=== PATIENT | male | born 1955 | race African-American/Black ===

== ENCOUNTER 2017-05-27 23:12 | Inpatient (IN) | payer MEDICAID ==
[~2017-05-27] VITALS: Ht 175.3 cm; Wt 69.4 kg
[~2017-05-27 23:12] MED LIST: ASPI-1159 PO; BP MED PO; CHOL20004 PO; INSULIN; KDUR10 PO
[2017-05-27] MEDS ORDERED: SODIUM CHLORIDE 0.9% 1,000 ML IV ONE (23:46)
[2017-05-28 00:37] LABS: BASOPHILS % 0.5 % (0.0-2.0); EOSINOPHILS % 0.7 % (0.0-5.0); HEMATOCRIT. 40.4 % (42.0-52.0); HEMOGLOBIN. 12.9 g/dL (14.0-18.0); LYMPHOCYTES % 12.5 % (20.0-50.0); MEAN CORPUSCULAR HEMOGLOBIN 29.1 pg (28.0-32.0); MEAN CORPUSCULAR VOLUME 91.4 fL (80.0-94.0); MEAN PLATELET VOLUME 11.2 fl (7.4-10.4); MONOCYTES % 12.4 % (2.0-8.0); NEUTROPHILS % 73.9 % (40.0-76.0); PLATELET 165 x1000/uL (130-400); RED BLOOD CELL COUNT 4.42 mill/uL (4.7-6.1)
[2017-05-28 00:40] LABS: CHLORIDE 91 mEq/L (98-107)
[2017-05-28 00:53] LABS: AMYLASE 56 IU/L (25-115); BETA HYDROXYBUTYRATE 0.8 mMol/L (0.0-0.3); CARBON DIOXIDE 26 mEq/L (21-32)
[2017-05-28] MEDS ORDERED: SODIUM CHLORIDE 0.9% 1,000 ML IV ONE (01:48)
[2017-05-28] MEDS ORDERED: INSULIN REGULAR (HUMULIN R) 300UNITS/3ML SUBCUT ONE (02:00)
[2017-05-28] MEDS ORDERED: INSULIN REGULAR (HUMULIN R) 300UNITS/3ML IV ONE (02:00)
[2017-05-28 09:00] VITALS: BP 156/101
[2017-05-28 09:50] VITALS: BP 156/101
[2017-05-28] MEDS ORDERED: ACETAMINOPHEN 325MG TABLET PO PRN (10:45)
[2017-05-28] MEDS ORDERED: GUAIFENESIN 200MG/10ML SUGAR FREE UDC PO PRN (10:45)
[2017-05-28] MEDS ORDERED: DIPHENHYDRAMINE 50MG/ML VIAL IV PRN (10:45)
[2017-05-28] MEDS ORDERED: MAGNESIUM/ALUMINUM HYDROXIDE/SIMETHICONE 30ML UDC PO PRN (10:45)
[2017-05-28] MEDS ORDERED: DOCUSATE SODIUM 100MG CAPSULE PO PRN (10:45)
[2017-05-28] MEDS ORDERED: HYDROCODONE/ACETAMINOPHEN 5/325MG TABLET PO PRN (10:45)
[2017-05-28] MEDS ORDERED: IPRATROPIUM/ALBUTEROL 0.5-3(2.5)MG/3ML NEB INH PRN (10:45)
[2017-05-28] MEDS: CLONIDINE 0.1MG TABLET PO PRN (11:04)
[2017-05-28] MEDS ORDERED: DEXTROSE 50% WATER 50ML SYRINGE IV PRN (11:45)
[2017-05-28] MEDS: SODIUM CHLORIDE 0.9% 1,000 ML IV SCH ×2 (11:52→18:03)
[2017-05-28 12:00] VITALS: BP 148/99
[2017-05-28] MEDS: ENOXAPARIN 40MG/0.4ML SYR SUBCUT SCH (12:13)
[2017-05-28] MEDS: BLOOD SUGAR DIAGNOSTIC STRIP TEST SCH ×3 (12:41→22:08)
[2017-05-28] MEDS ORDERED: INSULIN LISPRO 100 UNITS/ML SUBCUT SCH ×2 (13:10→17:40)
[2017-05-28] MEDS: INSULIN LISPRO 100 UNITS/ML SUBCUT SCH ×2 (13:35→18:05)
[2017-05-28 16:00] VITALS: BP 159/89
[2017-05-28] MEDS: INSULIN LISPRO (LOW DOSE) 100 UNITS/ML SUBCUT SCH (18:05)
[2017-05-28 20:00] VITALS: BP 154/92
[2017-05-28] MEDS ORDERED: INSULIN DETEMIR UD 100 UNITS/ML SYR SUBCUT SCH (22:00)
[2017-05-28 23:54] VITALS: BP 159/86
[2017-05-29] MEDS: SODIUM CHLORIDE 0.9% 1,000 ML IV SCH ×3 (00:03→09:44)
[2017-05-29 04:00] VITALS: BP 169/96
[2017-05-29] MEDS: CLONIDINE 0.1MG TABLET PO PRN ×2 (04:55→12:58)
[2017-05-29 05:41] VITALS: BP 148/89
[2017-05-29 05:52] LABS: BASOPHILS % 0.8 % (0.0-2.0); HEMATOCRIT. 41.3 % (42.0-52.0); HEMOGLOBIN. 13.5 g/dL (14.0-18.0); LYMPHOCYTES % 20.9 % (20.0-50.0); MEAN CORPUSCULAR VOLUME 88.8 fL (80.0-94.0); MEAN PLATELET VOLUME 10.5 fl (7.4-10.4); MONOCYTES % 10.9 % (2.0-8.0); NEUTROPHILS % 64.4 % (40.0-76.0); PLATELET 192 x1000/uL (130-400); RED BLOOD CELL COUNT 4.65 mill/uL (4.7-6.1); RED CELL DISTRIBUTION WIDTH 12.9 % (11.6-14.6)
[2017-05-29] MEDS: BLOOD SUGAR DIAGNOSTIC STRIP TEST SCH ×3 (06:00→18:20)
[2017-05-29] MEDS: INSULIN LISPRO (LOW DOSE) 100 UNITS/ML SUBCUT SCH (06:22)
[2017-05-29] MEDS: INSULIN LISPRO 100 UNITS/ML SUBCUT SCH ×5 (06:23→18:20)
[2017-05-29 06:40] LABS: CARBON DIOXIDE 22 mEq/L (21-32); CHLORIDE 100 mEq/L (98-107)
[2017-05-29 06:46] LABS: T4 FREE 1.31 ng/dL (0.76-1.46)
[2017-05-29 08:00] VITALS: BP 144/96
[2017-05-29] MEDS: ENOXAPARIN 40MG/0.4ML SYR SUBCUT SCH (09:44)
[2017-05-29 12:00] VITALS: BP 175/97
[2017-05-29] MEDS ORDERED: BLOOD SUGAR DIAGNOSTIC STRIP TEST SCH ×2 (12:40→17:40)
[2017-05-29] MEDS ORDERED: DEXTROSE 50% WATER 50ML SYRINGE IV PRN ×2 (12:45)
[2017-05-29] MEDS ORDERED: INSULIN LISPRO 100 UNITS/ML SUBCUT SCH ×3 (13:10→17:40)
[2017-05-29 16:00] VITALS: BP 148/96
[2017-05-29 16:19] VITALS: BP 156/72
[2017-05-29] MEDS ORDERED: INSULIN DETEMIR UD 100 UNITS/ML SYR SUBCUT SCH ×2 (22:00)
[2017-06-03 13:08] LABS: METANEPHRINE PLASMA 26 pg/mL (0-62); NORMETANEPHRINE PLASMA 85 pg/mL (0-145)
== END 2017-05-29 19:59 | disposition home or self-care (01) | DRG 52 ==
LOC: ER 23:12 → 7WST 05-28 05:48 → EDBEDREQ 05-28 05:49 → EDBEDREQTM 05-28 05:49 → EDBEDREQSVC 05-28 05:49 → ENRESERV 05-28 05:57 → CANRESERV 05-28 05:57 → ENRESERV 05-28 07:20
PROVIDERS: ADMIT Internal Medicine; ATTEND Internal Medicine
DX: G92 Toxic encephalopathy (principal); E10.51 Type 1 diabetes mellitus with diabetic peripheral angiopathy without gangrene; E10.65 Type 1 diabetes mellitus with hyperglycemia; I10 Essential (primary) hypertension; D35.02 Benign neoplasm of left adrenal gland; E55.9 Vitamin D deficiency, unspecified; E78.00 Pure hypercholesterolemia, unspecified; E78.5 Hyperlipidemia, unspecified; E86.0 Dehydration; G40.909 Epilepsy, unspecified, not intractable, without status epilepticus; H40.9 Unspecified glaucoma; D64.9 Anemia, unspecified; I73.9 Peripheral vascular disease, unspecified; M51.36 Other intervertebral disc degeneration, lumbar region; Z79.4 Long term (current) use of insulin; Z79.899 Other long term (current) drug therapy; Z86.73 Personal history of transient ischemic attack (TIA), and cerebral infarction without residual deficits; Z87.891 Personal history of nicotine dependence; Z96.41 Presence of insulin pump (external) (internal); Z59.0 Homelessness; Z91.013 Allergy to seafood; Z80.9 Family history of malignant neoplasm, unspecified
CPT/HCPCS: 36415; 71010; 80048; 80053; 80061; 82010; 82040; 82150; 82533; 82962; 83036; 83690; 83835; 84439; 84443; 85025; 93005; 93923; 93970; 99285; J1650; J1815; J7030

== ENCOUNTER 2017-05-29 21:23 | Emergency (ER) | payer MEDICAID | END 2017-05-30 01:00 | disposition left against medical advice (07) | LOC: ER 23:07 | DX: R53.1 Weakness (principal); Z53.21 Procedure and treatment not carried out due to patient leaving prior to being seen by health care provider ==

== ENCOUNTER 2017-06-01 01:10 | Inpatient (IN) | payer MEDICAID, OTHER ==
[~2017-06-01] VITALS: Ht 165.1 cm; Wt 67.1 kg
[2017-06-01] MEDS ORDERED: SODIUM CHLORIDE 0.9% 1,000 ML IV ONE ×2 (03:48→15:07)
[2017-06-01 04:18] LABS: BASOPHILS % 1.2 % (0.0-2.0); EOSINOPHILS % 0.3 % (0.0-5.0); HEMOGLOBIN. 13.3 g/dL (14.0-18.0); LYMPHOCYTES % 9.6 % (20.0-50.0); MEAN CORPUSCULAR HEMOGLOBIN 29.5 pg (28.0-32.0); MEAN CORPUSCULAR VOLUME 86.5 fL (80.0-94.0); MEAN PLATELET VOLUME 9.8 fl (7.4-10.4); MONOCYTES % 12.4 % (2.0-8.0); NEUTROPHILS % 76.5 % (40.0-76.0); PLATELET 243 x1000/uL (130-400); RED BLOOD CELL COUNT 4.51 mill/uL (4.7-6.1)
[2017-06-01 04:33] LABS: CARBON DIOXIDE 28 mEq/L (21-32); CHLORIDE 102 mEq/L (98-107); TROPONIN I 0.05 ng/mL (0.00-0.04)
[2017-06-01] MEDS ORDERED: OLANZAPINE 10 MG/VIAL IM ONE (05:00)
[2017-06-01 08:06] LABS: *AMPHETAMINES SCREEN URINE NEGATIVE (NEGATIVE); *BARBITURATES SCREEN URINE NEGATIVE (NEGATIVE); *BENZODIAZEPINES SCREEN URINE NEGATIVE (NEGATIVE); *COCAINE SCREEN URINE NEGATIVE (NEGATIVE); CANNABINOID URINE SCREEN PRESUMTIVE POSITIVE (NEGATIVE); METHADONE URINE SCREEN NEGATIVE (NEGATIVE); OPIATES URINE SCREEN NEGATIVE (NEGATIVE); PHENCYCLIDINE URINE SCREEN NEGATIVE (NEGATIVE)
[2017-06-01] MEDS ORDERED: CLOP75TA33 PO (14:46)
[2017-06-01] MEDS ORDERED: LOSA100T14 PO (14:46)
[2017-06-01] MEDS ORDERED: [UNRECOGNIZED DRUG - OTHER] (14:46)
[2017-06-01] MEDS ORDERED: AMLO2.5T45 PO (14:46)
[2017-06-01] MEDS ORDERED: FLUO-124 PO (14:46)
[2017-06-01] MEDS ORDERED: NAPR-681 PO (14:46)
[2017-06-01 16:58] LABS: CLARITY URINE CLEAR (CLEAR); COLOR URINE YELLOW (YELLOW); GLUCOSE URINE 3+ (NEGATIVE); KETONES URINE 1+ (NEGATIVE); LEUKOCYTE ESTERASE URINE NEGATIVE (NEGATIVE); NITRITE URINE NEGATIVE (NEGATIVE); OCCULT BLOOD URINE TRACE (NEGATIVE); PH URINE 5.5 (4.5-8.0); PROTEIN URINE 1+ (NEGATIVE); SPECIFIC GRAVITY URINE 1.022 (1.005-1.030); UROBILINOGEN URINE 0.2 E.U./dL (0.2-1.0)
[2017-06-02] MEDS ORDERED: CLOPIDOGREL 75MG TABLET PO SCH (10:15)
[2017-06-02] MEDS ORDERED: AMLODIPINE 5MG TABLET PO SCH (10:15)
[2017-06-02] MEDS ORDERED: LOSARTAN POTASSIUM 25 MG TABLET PO SCH (10:15)
[2017-06-02] MEDS: ASPIRIN 81MG TABLET PO SCH ×2 (10:37→12:55)
[2017-06-02] MEDS ORDERED: SODIUM CHLORIDE 0.9% 1,000 ML IV ONE ×2 (22:29→23:14)
[2017-06-02 23:10] LABS: BG BASE EXCESS -20.8 mmol/L (-2.0-2.0); BG CARBOXYHEMOGLOBIN 0.4 % (0.5-1.5); BG DEOXYHEMOGLOBIN 2.1 % (0.0-5.0); BG FRACTION INSPIRED OXYGEN 21; BG HCO3 ACT 5.3 mmol/L (22.0-26.0); BG METHEMOGLOBIN 0.4 % (0.0-1.5); BG OXYGEN SATURATION 97.9 % (92.0-98.5); BG OXYHEMOGLOBIN 97.1 % (94.0-97.0); BG PCO2 14.9 mmHg (35.0-45.0); BG PH 7.172 (7.350-7.450); BG PO2 130.1 mmHg (75.0-100.0); BG SAMPLE SITE RIGHT RADIAL; BG TOTAL HEMOGLOBIN 13.4 g/dL (12.0-18.0); BG VENT MODE ROOM AIR
[2017-06-02] MEDS ORDERED: ONDANSETRON HCL 4MG/2ML VIAL IV STA (23:14)
[2017-06-02] MEDS ORDERED: INSULIN REGULAR (DRIP) 100 UNITS in SODIUM CHLORIDE 0.9% 99 ML IV SCH (23:15)
[2017-06-02 23:16] LABS: CHLORIDE 81 mEq/L (98-107)
[2017-06-02 23:26] LABS: CARBON DIOXIDE 8 mEq/L (21-32)
[2017-06-02 23:49] LABS: HEMATOCRIT. 43.7 % (42.0-52.0); HEMOGLOBIN. 12.7 g/dL (14.0-18.0); MEAN CORPUSCULAR HEMOGLOBIN 29.1 pg (28.0-32.0); MEAN PLATELET VOLUME 11.5 fl (7.4-10.4); PLATELET 219 x1000/uL (130-400); RED BLOOD CELL COUNT 4.37 mill/uL (4.7-6.1); RED CELL DISTRIBUTION WIDTH 14.4 % (11.6-14.6)
[2017-06-02 23:52] LABS: BETA HYDROXYBUTYRATE 17.2 mMol/L (0.0-0.3)
[2017-06-03] VITALS (21 sets, daily range): BP systolic 85–165; BP diastolic 40–87
[2017-06-03] MEDS ORDERED: SODIUM CHLORIDE 0.9% 1,000 ML IV STA (00:25)
[2017-06-03 02:07] LABS: PLATELET ESTIMATE NORMAL
[2017-06-03] MEDS ORDERED: SODIUM POLYSTYRENE SULFONATE 15 G/60 ML BOT PO NR (03:15)
[2017-06-03] MEDS ORDERED: ONDANSETRON HCL 4MG/2ML VIAL IV PRN (03:15)
[2017-06-03] MEDS ORDERED: DEXTROSE 50% WATER 50ML SYRINGE IV PRN ×3 (03:15→17:30)
[2017-06-03] MEDS ORDERED: SODIUM CHLORIDE 0.9% 1,000 ML IV SCH (03:15)
[2017-06-03] MEDS ORDERED: MORPHINE SULFATE 2 MG/ML CPJ (NOT FOR IM USE) IV PRN (03:15)
[2017-06-03] MEDS: BLOOD SUGAR DIAGNOSTIC STRIP TEST SCH ×17 (03:23→20:19)
[2017-06-03] MEDS: INSULIN REGULAR (DRIP) 100 UNITS in SODIUM CHLORIDE 0.9% 100 ML IV SCH ×2 (04:52→11:08)
[2017-06-03 06:36] LABS: HEMOGLOBIN. 12.2 g/dL (14.0-18.0); MEAN CORPUSCULAR VOLUME 90.7 fL (80.0-94.0); MEAN PLATELET VOLUME 10.4 fl (7.4-10.4); PLATELET 215 x1000/uL (130-400); RED BLOOD CELL COUNT 4.19 mill/uL (4.7-6.1); RED CELL DISTRIBUTION WIDTH 13.3 % (11.6-14.6)
[2017-06-03] MEDS: DEXT 5%/0.45% NACL 1000ML 1,000 ML IV SCH ×2 (09:07→16:49)
[2017-06-03 10:36] LABS: PLATELET ESTIMATE NORMAL
[2017-06-03] MEDS ORDERED: HALOPERIDOL LACTATE 5MG/ML VIAL IM NR (11:55)
[2017-06-03] MEDS ORDERED: LORAZEPAM 2MG/ML CPJ IV PRN (11:55)
[2017-06-03 16:40] LABS: CHLORIDE 107 mEq/L (98-107)
[2017-06-03 16:47] LABS: CARBON DIOXIDE 27 mEq/L (21-32)
[2017-06-03] MEDS: DEXT 5%/0.45% NACL KCL 20MEQ/L 1,000 ML IV SCH (17:57)
[2017-06-03] MEDS ORDERED: POTASSIUM CHLORIDE INJ 40 MEQ in DEXT 5% WATER 250 ML IV SCH (18:00)
[2017-06-03] MEDS: INSULIN DETEMIR UD 100 UNITS/ML SYR SUBCUT SCH (18:17)
[2017-06-03] MEDS: INSULIN LISPRO 100 UNITS/ML SUBCUT SCH ×2 (18:18→20:19)
[2017-06-04] VITALS: BP 126/76
[2017-06-04 04:00] VITALS: BP 115/70
[2017-06-04] MEDS: DEXT 5%/0.45% NACL KCL 20MEQ/L 1,000 ML IV SCH (05:53)
[2017-06-04] MEDS: BLOOD SUGAR DIAGNOSTIC STRIP TEST SCH ×4 (06:20→21:00)
[2017-06-04 06:49] LABS: HEMATOCRIT. 37.7 % (42.0-52.0); HEMOGLOBIN. 12.4 g/dL (14.0-18.0); MEAN CORPUSCULAR HEMOGLOBIN 28.8 pg (28.0-32.0); MEAN CORPUSCULAR VOLUME 87.4 fL (80.0-94.0); MEAN PLATELET VOLUME 10.2 fl (7.4-10.4); PLATELET 174 x1000/uL (130-400); RED BLOOD CELL COUNT 4.31 mill/uL (4.7-6.1); RED CELL DISTRIBUTION WIDTH 12.6 % (11.6-14.6)
[2017-06-04 07:04] LABS: CARBON DIOXIDE 29 mEq/L (21-32); CHLORIDE 108 mEq/L (98-107)
[2017-06-04] MEDS: INSULIN LISPRO 100 UNITS/ML SUBCUT SCH ×4 (07:18→21:35)
[2017-06-04 08:00] VITALS: BP 137/79
[2017-06-04] MEDS: INSULIN DETEMIR UD 100 UNITS/ML SYR SUBCUT SCH (09:47)
[2017-06-04 12:00] VITALS: BP 114/95
[2017-06-04 14:23] LABS: PLATELET ESTIMATE NORMAL
[2017-06-04 16:00] VITALS: BP 145/91
[2017-06-04 20:00] VITALS: BP 157/97
[2017-06-05] VITALS: BP 155/80
[2017-06-05 04:00] VITALS: BP 132/79
[2017-06-05] MEDS: BLOOD SUGAR DIAGNOSTIC STRIP TEST SCH ×4 (06:41→20:14)
[2017-06-05] MEDS: INSULIN LISPRO 100 UNITS/ML SUBCUT SCH ×4 (06:46→20:14)
[2017-06-05 08:00] VITALS: BP 152/89
[2017-06-05] MEDS: INSULIN DETEMIR UD 100 UNITS/ML SYR SUBCUT SCH (10:58)
[2017-06-05 12:00] VITALS: BP 132/59
[2017-06-05] MEDS: LOSARTAN POTASSIUM 100 MG TABLET PO SCH (12:44)
[2017-06-05] MEDS: FLUOXETINE HCL 20MG CAPSULE PO SCH (12:45)
[2017-06-05] MEDS: ASPIRIN 81MG EC TABLET PO SCH (12:45)
[2017-06-05] MEDS: AMLODIPINE 2.5MG TABLET PO SCH (12:45)
[2017-06-05] MEDS: CLOPIDOGREL 75MG TABLET PO SCH (12:45)
[2017-06-05 16:00] VITALS: BP 164/80
[2017-06-05 16:25] LABS: BASOPHILS % 0.2 % (0.0-2.0); EOSINOPHILS % 0.7 % (0.0-5.0); HEMATOCRIT. 39.1 % (42.0-52.0); HEMOGLOBIN. 12.9 g/dL (14.0-18.0); LYMPHOCYTES % 7.2 % (20.0-50.0); MEAN CORPUSCULAR VOLUME 87.6 fL (80.0-94.0); MEAN PLATELET VOLUME 10.8 fl (7.4-10.4); MONOCYTES % 7.2 % (2.0-8.0); NEUTROPHILS % 84.7 % (40.0-76.0); PLATELET 177 x1000/uL (130-400); RED BLOOD CELL COUNT 4.46 mill/uL (4.7-6.1); RED CELL DISTRIBUTION WIDTH 12.9 % (11.6-14.6)
[2017-06-05 20:00] VITALS: BP 161/87
[2017-06-06] VITALS: BP 154/85
[2017-06-06 04:00] VITALS: BP 166/86
[2017-06-06] MEDS: BLOOD SUGAR DIAGNOSTIC STRIP TEST SCH ×4 (06:26→21:00)
[2017-06-06 08:00] VITALS: BP 149/92
[2017-06-06] MEDS: INSULIN LISPRO 100 UNITS/ML SUBCUT SCH ×4 (09:00→22:32)
[2017-06-06] MEDS: LOSARTAN POTASSIUM 100 MG TABLET PO SCH (09:03)
[2017-06-06] MEDS: AMLODIPINE 2.5MG TABLET PO SCH (09:03)
[2017-06-06] MEDS: ASPIRIN 81MG EC TABLET PO SCH (09:03)
[2017-06-06] MEDS: CLOPIDOGREL 75MG TABLET PO SCH (09:03)
[2017-06-06] MEDS: FLUOXETINE HCL 20MG CAPSULE PO SCH (09:03)
[2017-06-06] MEDS: INSULIN DETEMIR UD 100 UNITS/ML SYR SUBCUT SCH (11:09)
[2017-06-06 12:00] VITALS: BP 155/95
[2017-06-06] MEDS ORDERED: INSULIN LISPRO 100 UNITS/ML SUBCUT SCH (12:30)
[2017-06-06 16:00] VITALS: BP 132/86
[2017-06-06 20:00] VITALS: BP 149/89
[2017-06-07] VITALS: BP 154/91
[2017-06-07 04:00] VITALS: BP 169/91
[2017-06-07] MEDS: CLONIDINE 0.1MG TABLET PO PRN ×2 (05:02→13:23)
[2017-06-07 08:00] VITALS: BP 155/85
[2017-06-07] MEDS: LOSARTAN POTASSIUM 100 MG TABLET PO SCH (09:39)
[2017-06-07] MEDS: AMLODIPINE 2.5MG TABLET PO SCH (09:39)
[2017-06-07] MEDS: CLOPIDOGREL 75MG TABLET PO SCH (09:39)
[2017-06-07] MEDS: ASPIRIN 81MG EC TABLET PO SCH (09:39)
[2017-06-07] MEDS: FLUOXETINE HCL 20MG CAPSULE PO SCH (09:39)
[2017-06-07] MEDS: INSULIN LISPRO 100 UNITS/ML SUBCUT SCH ×3 (09:41→18:29)
[2017-06-07] MEDS: INSULIN DETEMIR UD 100 UNITS/ML SYR SUBCUT SCH (09:42)
[2017-06-07 12:00] VITALS: BP 168/95
[2017-06-07] MEDS: BLOOD SUGAR DIAGNOSTIC STRIP TEST SCH ×2 (12:44→17:20)
[2017-06-07 16:00] VITALS: BP 151/90
[2017-06-07 18:52] VITALS: BP 151/90
== END 2017-06-07 19:45 | disposition home or self-care (01) | DRG 420 ==
LOC: ER 01:16 → CANBEDREQ 06-02 01:41 → CVICU 06-03 00:29 → ENRESERV 06-03 01:11 → 6EST 06-03 21:24
PROVIDERS: ADMIT Hospitalist; ATTEND Hospitalist
DX: E13.10 Other specified diabetes mellitus with ketoacidosis without coma (principal); G93.41 Metabolic encephalopathy; N17.9 Acute kidney failure, unspecified; R65.10 Systemic inflammatory response syndrome (SIRS) of non-infectious origin without acute organ dysfunction; E87.5 Hyperkalemia; I10 Essential (primary) hypertension; E78.00 Pure hypercholesterolemia, unspecified; D72.829 Elevated white blood cell count, unspecified; F32.9 Major depressive disorder, single episode, unspecified; Z86.73 Personal history of transient ischemic attack (TIA), and cerebral infarction without residual deficits; Z79.4 Long term (current) use of insulin; Z88.2 Allergy status to sulfonamides; Z91.013 Allergy to seafood; Z79.82 Long term (current) use of aspirin; Z79.899 Other long term (current) drug therapy
CPT/HCPCS: 36415; 36600; 70450; 71010; 74176; 80048; 80053; 80305; 81001; 82010; 82375; 82805; 82962; 84484; 85025; 87040; 87077; 87086; 87186; 93005; 96360; 96361; 96372; 99285; J1630; J1815; J2060; J2405; J3480; J3490; J7030; J7050; J7060